=== PATIENT | female | born 1980 | race Caucasian/White ===

== ENCOUNTER 2021-03-11 01:26 | Observation (INO) | payer OTHER ==
[~2021-03-11] VITALS: Ht 162.6 cm; Wt 83.0 kg
[2021-03-11] MEDS ORDERED: PNV1TABL76 PO (02:45)
== END 2021-03-11 06:35 | disposition home or self-care (01) ==
LOC: 8 EST LDRP 01:26
PROVIDERS: ADMIT Obstetrics & Gynecology; ATTEND Obstetrics & Gynecology
DX: O62.9 Abnormality of forces of labor, unspecified (principal); O36.8130 Decreased fetal movements, third trimester, not applicable or unspecified; O24.410 Gestational diabetes mellitus in pregnancy, diet controlled; Z3A.39 39 weeks gestation of pregnancy
CPT/HCPCS: 59025; 76805; 76817; 76818; 82962; G0378; 99281